=== PATIENT | male | born 1960 | race Hispanic/Latino ===

== ENCOUNTER 2017-06-15 11:22 | Emergency (ER) | payer BC ==
[~2017-06-15] VITALS: Ht 243.8 cm; Wt 99.8 kg
[~2017-06-15 11:22] MED LIST: CIPRO500 MG PO; METRONIDAZOLE500 MG PO; NORCO 5-325 TA1 EACH PO; ONDANSETRO4 MG/UDTAB SL; SENNA S TABLET1 EACH PO; TAMSULOSIN HCL0.4 MG PO
--- OUTSIDE RECORDS SUMMARY | 2017-06-15 11:25 | XMS REPORT | Clinical Summary ---
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 Lin - repeat 2022 Diverticulitis of colon with perforation 07/31/2015 Overview: Dr. Mckeon. NAFLD (nonalcoholic fatty liver disease) 11/08/2012 Obesity 03/15/2012 Hyperlipidemia 03/15/2012 Overview: LDL 152 Immunizations Name Dates Previously Given Next Due Influenza TIV (IM) 03/07/2013 Tdap 03/07/2013 Family History Relation Name Status Comments Brother 4 Alive Daughter 2 Alive Father Mother Sister 8 Alive Social History Tobacco Use Types Packs/Day Years Used Date Never Smoker Alcohol Use Drinks/Week oz/Week Comments No Sex Assigned at Date Recorded Not on file Last Filed Vital Signs Not on file Plan of Treatment Health Maintenance Due Date Last Done Comments INFLUENZA VACCINE 02/08/2017 Results Not on fileafter 06/14/2016
== END 2017-06-15 12:20 | disposition home or self-care (01) ==
LOC: FSED 11:22
DX: R05 Cough (principal); J11.1 Influenza due to unidentified influenza virus with other respiratory manifestations
CPT/HCPCS: 99283